=== PATIENT | female | born 1960 | race Hispanic/Latino ===

== ENCOUNTER 2017-07-30 12:05 | Outpatient (CLI) | payer MEDICARE ==
--- OUTSIDE RECORDS SUMMARY | 2017-07-30 12:08 | XMS | Clinical Summary ---
:1960 Author Organization [facility] [employer] Address [address] [place] [address] Phone Care Team Providers Name Role Phone , Primary Care Provider Unavailable Allergies Not on File Current Medications Not on file Active Problems Not on file Social History Tobacco Use Types Packs/Day Years Used Date Never Assessed Sex Assigned at Date Recorded Not on file Last Filed Vital Signs Not on file Plan of Treatment Not on file Results Not on filefrom Last 3 Months
--- NOTE | 2017-07-30 17:53 | PET ---
PET CT: HISTORY: 56-year-old female with right breast cancer and right axillary lymph job metastasis. Status post r ight mastectomy. Pulmonary nodules on CT scan of 07/11/17. Exam requested for staging. TECHNIQUE: PET scanning with CT attenuation correction was performed from the base of the brain through the pro ximal thighs following the intravenous administration of 11 mCi [id number] in the left wrist. Imaging w as performed after an uptake interval of 48 minutes. CORRELATION: CT chest of 07/11/17. FINDINGS: There are postop changes in the right breast. No job hypermetabolism is seen in the cervical, inte rnal mammary, axillary, mediastinal, hilar, abdominopelvic lymph nodes, pulmonary nodules, liver, ad renal glands, or skeleton. There is physiologic activity in the GI and tracts, and the visualized portions of the brain. The CT scan used for attenuation correction demonstrates no evidence of pleural effusions or ascites . IMPRESSION: 1. No evidence of metastatic disease by PET. 2. Pulmonary nodules should be monitored with follow-up CT scan in 3 months. POS: [facility]
== END 2017-07-30 12:06 | disposition home or self-care (01) ==
LOC: PET 12:05
PROVIDERS: ATTEND Radiology Radiation Oncology
DX: C50.811 Malignant neoplasm of overlapping sites of right female breast (principal); R91.8 Other nonspecific abnormal finding of lung field
CPT/HCPCS: 78815; A9552

== ENCOUNTER 2018-01-15 11:50 | Outpatient (CLI) | payer MEDICARE ==
--- NOTE | 2018-01-15 13:04 | CT ---
CT CHEST WITH IV CONTRAST: Date: 01/15/18 HISTORY: Breast cancer with pulmonary nodules. Right mastectomy and radiation therapy. COMPARISON: 07/11/17. FINDINGS: No evidence of mediastinal, hilar, or axillary mass or lymphadenopathy seen. No pleural or pericardia l effusions are identified. There are postop changes of right mastectomy. Increased peripheral density in the anterior aspect of the right upper lobe is consistent with post radiation changes. Multiple pulmonary nodules noted on the previous scan are stable. The largest is in the right lower l obe and measures 1.2 cm. No new pulmonary nodules are seen. There are degenerative changes in the spine. No osteolytic or osteoblastic lesions are noted. Upper a bdominal tomograms demonstrate a questionable tiny gallstone. IMPRESSION: Stable pulmonary nodules since 07/11/17. POS: [facility]
[2018-01-15] MEDS ORDERED: Iopamidol 370 76% 100 ML VIAL ONE (16:29)
== END 2018-01-15 11:51 | disposition home or self-care (01) ==
LOC: CT 11:50
PROVIDERS: ATTEND Radiology Radiation Oncology
DX: C50.919 Malignant neoplasm of unspecified site of unspecified female breast (principal); R91.8 Other nonspecific abnormal finding of lung field
CPT/HCPCS: 71260

== ENCOUNTER 2018-07-09 09:37 | Outpatient (CLI) | payer MEDICARE | END 2018-07-09 09:38 | disposition home or self-care (01) | LOC: BICMAMMO 09:37 | PROVIDERS: ATTEND Internal Medicine Hematology & Oncology | DX: Z08 Encounter for follow-up examination after completed treatment for malignant neoplasm (principal); Z85.3 Personal history of malignant neoplasm of breast | CPT/HCPCS: 77065; G0279 ==

== ENCOUNTER 2019-07-31 08:14 | Outpatient (CLI) | payer MEDICARE ==
--- NOTE | 2019-07-31 09:01 | MMO ---
Left Breast MAMMO Unilat Diag DDI LT+NEETA. CLINICAL HISTORY: Patient is 58 years old and is seen for diagnostic exam. The patient has no family history of breast cancer. The patient has a history of Nipple sparing mastectomy procedure revealed invasive ductal right breast carcinoma in April, and Ultrasound guided core biopsy procedure revealed invasive ductal right breast carcinoma in Mar, 2017. The patient has a history of right Ultrasound Guided Core Biopsy in Mar, 2017. VIEWS: The views performed were: left craniocaudal; left craniocaudal with tomosynthesis; left mediolateral oblique with tomosynthesis; and left mediolateral with tomosynthesis. FILMS COMPARED: The present examination has been compared to prior imaging studies performed at [facility] on 02/26/2017, 03/08/2017 and 07/09/2018. This study has been interpreted with the assistance of computer-aided detection. MAMMOGRAM FINDINGS: There are scattered fibroglandular densities. There are no suspicious masses, suspicious calcifications, or new areas of architectural distortion. IMPRESSION: THERE IS NO MAMMOGRAPHIC EVIDENCE OF MALIGNANCY. A ROUTINE FOLLOW-UP MAMMOGRAM IN 1 YEAR IS RECOMMENDED. THE RESULTS OF THIS EXAM WERE SENT TO THE PATIENT. ACR BI-RADS Category 1 - Negative MAMMOGRAPHY NOTE: 1. A negative mammogram report should not delay a biopsy if a dominant of clinically suspicious mass is present. 2. Approximately 10% to 15% of breast cancers are not detected by mammography. 3. Adenosis and dense breasts may obscure an underlying neoplasm. Reported by: YADIEL ANGEL MD Electonically Signed: [id number]
== END 2019-07-31 08:15 | disposition home or self-care (01) ==
LOC: BICMAMMO 08:14
PROVIDERS: ATTEND Internal Medicine Hematology & Oncology
DX: Z08 Encounter for follow-up examination after completed treatment for malignant neoplasm (principal); Z85.3 Personal history of malignant neoplasm of breast; Z90.11 Acquired absence of right breast and nipple
CPT/HCPCS: 77065; G0279

== ENCOUNTER 2020-09-23 13:48 | Outpatient (CLI) | payer MEDICARE ==
--- NOTE | 2020-09-23 14:12 | MMO ---
Left Breast MAMMO Unilat Diag DDI LT+NEETA. CLINICAL HISTORY: Patient is 59 years old and is seen for diagnostic exam. The patient has no family history of breast cancer. The patient has a history of Nipple sparing mastectomy procedure revealed invasive ductal right breast carcinoma in April, and Ultrasound guided core biopsy procedure revealed invasive ductal right breast carcinoma in Mar, 2017. The patient has a history of right Ultrasound Guided Core Biopsy in Mar, 2017. VIEWS: The views performed were: left craniocaudal; left craniocaudal with tomosynthesis; left mediolateral oblique with tomosynthesis; and left mediolateral with tomosynthesis. FILMS COMPARED: The present examination has been compared to prior imaging studies performed at [facility] on 02/26/2017, 03/08/2017, 07/09/2018 and 07/31/2019. This study has been interpreted with the assistance of computer-aided detection. MAMMOGRAM FINDINGS: The breast is almost entirely fat. There are no suspicious masses, suspicious calcifications, or new areas of architectural distortion. IMPRESSION: THERE IS NO MAMMOGRAPHIC EVIDENCE OF MALIGNANCY. A ROUTINE FOLLOW-UP MAMMOGRAM IN 1 YEAR IS RECOMMENDED. THE RESULTS OF THIS EXAM WERE SENT TO THE PATIENT. ACR BI-RADS Category 1 - Negative MAMMOGRAPHY NOTE: 1. A negative mammogram report should not delay a biopsy if a dominant of clinically suspicious mass is present. 2. Approximately 10% to 15% of breast cancers are not detected by mammography. 3. Adenosis and dense breasts may obscure an underlying neoplasm. Reported by: MARGE JO MD Electonically Signed: [id number]
== END 2020-09-23 13:49 | disposition home or self-care (01) ==
LOC: BICMAMMO 13:48
PROVIDERS: ATTEND Internal Medicine Hematology & Oncology
DX: Z08 Encounter for follow-up examination after completed treatment for malignant neoplasm (principal); Z85.3 Personal history of malignant neoplasm of breast
CPT/HCPCS: 77065; G0279

== ENCOUNTER 2021-11-21 13:07 | Outpatient (CLI) | payer MEDICARE, OTHER | END 2021-11-21 13:08 | disposition home or self-care (01) | LOC: BICMAMMO 13:07 | PROVIDERS: ATTEND Internal Medicine Hematology & Oncology | DX: Z08 Encounter for follow-up examination after completed treatment for malignant neoplasm (principal); Z85.3 Personal history of malignant neoplasm of breast | CPT/HCPCS: G0279 ==

== ENCOUNTER 2022-02-27 11:50 | Day surgery (SDC) | payer OTHER ==
[2022-02-26 12:26] VITALS: BMI 42.0
[2022-02-27] MEDS ORDERED: Lidocaine 1% PF 5 ML VIAL ONE (12:37)
[2022-02-27] MEDS ORDERED: Sodium Bicarbonate 2.5 MEQ/5 ML VIAL ONE (12:37)
[2022-02-27 13:10] VITALS: BP 166/66; TEMP 97.9
== END 2022-02-27 13:28 | disposition home or self-care (01) ==
LOC: ULT 11:50
PROVIDERS: ATTEND Internal Medicine Hematology & Oncology
PROC: 07D23ZX Extraction of Left Neck Lymphatic, Percutaneous Approach, Diagnostic (ICD-10-PCS; principal; 2022-02-27)
DX: C77.0 Secondary and unspecified malignant neoplasm of lymph nodes of head, face and neck (principal); C50.811 Malignant neoplasm of overlapping sites of right female breast; Z17.0 Estrogen receptor positive status [ER+]; Z79.4 Long term (current) use of insulin; Z79.84 Long term (current) use of oral hypoglycemic drugs; Z79.899 Other long term (current) drug therapy
CPT/HCPCS: 38505; 88184; 88305; 88333; 88334; 88341; 88342

== ENCOUNTER 2022-03-12 07:25 | Outpatient (CLI) | payer OTHER ==
[2022-03-12] MEDS ORDERED: Iopamidol 370 76% 100 ML VIAL ONE (09:20)
== END 2022-03-12 07:26 | disposition home or self-care (01) ==
LOC: CT 07:25
PROVIDERS: ATTEND Internal Medicine Hematology & Oncology
DX: C50.811 Malignant neoplasm of overlapping sites of right female breast (principal); C79.89 Secondary malignant neoplasm of other specified sites; R59.0 Localized enlarged lymph nodes; R91.8 Other nonspecific abnormal finding of lung field; K80.20 Calculus of gallbladder without cholecystitis without obstruction
CPT/HCPCS: 71260; 74177; 78306; 82565; A9503

== ENCOUNTER 2022-07-10 09:42 | Outpatient (CLI) | payer OTHER ==
[2022-07-10] MEDS ORDERED: Iopamidol 370 76% 100 ML VIAL ONE (12:54)
== END 2022-07-10 09:43 | disposition home or self-care (01) ==
LOC: CT 09:42
PROVIDERS: ATTEND Internal Medicine Hematology & Oncology
DX: C79.51 Secondary malignant neoplasm of bone (principal); C50.811 Malignant neoplasm of overlapping sites of right female breast; C78.00 Secondary malignant neoplasm of unspecified lung; R91.8 Other nonspecific abnormal finding of lung field; R59.0 Localized enlarged lymph nodes; K80.20 Calculus of gallbladder without cholecystitis without obstruction; Z98.890 Other specified postprocedural states
CPT/HCPCS: 71260; 74177; 78306; A9503; Q9967

== ENCOUNTER 2022-07-16 13:14 | Outpatient (CLI) | payer OTHER | END 2022-07-16 13:15 | disposition home or self-care (01) | LOC: ULT 13:14 | PROVIDERS: ATTEND Registered Nurse Community Health | DX: R60.0 Localized edema (principal) | CPT/HCPCS: 93970 ==

== ENCOUNTER 2022-11-27 09:03 | Outpatient (CLI) | payer OTHER ==
[2022-11-27] MEDS ORDERED: Iopamidol 370 76% 100 ML VIAL ONE (09:25)
[2022-11-27] MEDS ORDERED: GASTROGRAFIN 30 ML BOT ONE (09:25)
== END 2022-11-27 09:04 | disposition home or self-care (01) ==
LOC: NM 09:03
PROVIDERS: ATTEND Internal Medicine Hematology & Oncology
DX: C50.811 Malignant neoplasm of overlapping sites of right female breast (principal); C79.51 Secondary malignant neoplasm of bone; R59.0 Localized enlarged lymph nodes; R91.8 Other nonspecific abnormal finding of lung field
CPT/HCPCS: 71260; 74177; 78306; A9503; Q9963; Q9967

== ENCOUNTER 2023-09-12 07:23 | Outpatient (CLI) | payer OTHER | END 2023-09-12 07:24 | disposition home or self-care (01) | LOC: CT 07:23 | PROVIDERS: ATTEND Internal Medicine Hematology & Oncology | DX: C50.811 Malignant neoplasm of overlapping sites of right female breast (principal); C79.51 Secondary malignant neoplasm of bone; R59.0 Localized enlarged lymph nodes; G95.89 Other specified diseases of spinal cord; Z98.890 Other specified postprocedural states | CPT/HCPCS: 71260; 74177; 78306; 82565; A9503 ==

== ENCOUNTER 2024-08-31 11:21 | Outpatient (CLI) | payer OTHER | END 2024-08-31 11:22 | disposition home or self-care (01) | LOC: CT 11:21 | PROVIDERS: ATTEND Internal Medicine Hematology & Oncology | DX: C50.811 Malignant neoplasm of overlapping sites of right female breast (principal); C79.51 Secondary malignant neoplasm of bone; D63.1 Anemia in chronic kidney disease; N18.9 Chronic kidney disease, unspecified; R59.0 Localized enlarged lymph nodes | CPT/HCPCS: 71260; 74177; 82565 ==

== ENCOUNTER 2025-09-06 09:24 | Outpatient (CLI) | payer OTHER ==
[2025-09-06 11:19] LABS: Estimated GFR - POC 29.0
== END 2025-09-06 09:25 | disposition home or self-care (01) ==
LOC: CT 09:24
PROVIDERS: ATTEND Internal Medicine Hematology & Oncology
DX: D51.9 Vitamin B12 deficiency anemia, unspecified (principal); C50.811 Malignant neoplasm of overlapping sites of right female breast; C79.51 Secondary malignant neoplasm of bone; N18.9 Chronic kidney disease, unspecified; D63.1 Anemia in chronic kidney disease; R59.0 Localized enlarged lymph nodes; Z90.11 Acquired absence of right breast and nipple; Z85.3 Personal history of malignant neoplasm of breast; K80.20 Calculus of gallbladder without cholecystitis without obstruction
CPT/HCPCS: 71250; 71260; 74177; 82565